=== PATIENT | female | born 1960 | race African-American/Black ===

== ENCOUNTER 2017-07-02 15:22 | Emergency (ER) | payer OTHER, MEDICARE ==
[~2017-07-02] VITALS: Ht 157.5 cm; Wt 86.2 kg
[2017-07-02] MEDS ORDERED: NKM (15:37)
--- NOTE | 2017-07-02 15:50 | Emergency Room Report ---
History of Present Illness General Chief Complaint: Dizziness Source: Patient Present Illness HPI [id number] walk-in with 2-3 days of "dizziness" - by dizziness, patient endorses feeling lightheaded. Only when she moves from lying to standing position. However, alleges room "Was spinning" 3 days ago. Symptoms assoc with 3 days of constant generalized headache as well. "mild headache," 4/10. Sharp in quality. No associated nausea/vomiting, chest pain, SOB, palpitations, abd pain, urinary complaints History of hemorrhoids but denies blood in stool, dark blood. Doesnt take any other medication. Used to take ibuprofen "every other day" but hasnt taken in "months." Family history of DM. Blood glucose 110 here. Allergies: Coded Allergies: No Known Allergies (Unverified , 07/02/17) Patient History Past Medical History: none Past Surgical History: none Pertinent Family History: DM Social History: Denies: smoking, alcohol use, drug use Now: No Immunizations: UTD Reviewed Nursing Documentation: PMH: Agreed, PSxH: Agreed Nursing Documentation-PMH Past Medical History: No Stated History Review of Systems All Other Systems: negative except mentioned in HPI Physical Exam Vital Signs Date Time Temp Pulse Resp B/P (MAP) Pulse Ox O2 Delivery O2 Flow Rate FiO2 07/02/17 15:25 98.1 109 20 148/72 100 Room Air Sp02 EP Interpretation: reviewed, normal General Appearance: normal inspection, well appearing, no apparent distress, alert, GCS 15, non-toxic Head: normocephalic, atraumatic Eyes: bilateral eye PERRL, bilateral eye EOMI ENT: normal ENT inspection, hearing grossly normal, normal voice Neck: normal inspection, full range of motion, supple, no bony tend Respiratory: normal inspection, lungs clear, normal breath sounds, no rhonchi, no respiratory distress, no retraction, no accessory muscle use, no wheezing, speaking full sentences Cardiovascular #1: no edema, no gallop, no JVD, tachycardia Gastrointestinal: normal inspection, normal bowel sounds, non tender, soft, no guarding, no hernia Genitourinary: no CVA tenderness Musculoskeletal: normal inspection, back normal, normal range of motion, Bethanie' s Sign negative Neurologic: normal inspection, alert, oriented x3, responsive, supervisor cap and hat production III-XII nml as tested, cerebellar normal, normal gait, speech normal Psychiatric: normal inspection, judgement/insight normal, mood/affect normal Skin: normal inspection, normal color, no rash Medical Decision Making Diagnostic Impression: Primary Impression: Light-headed feeling Additional Impressions: Tachycardia Headache Qualified Codes: G44.209 - Tension-type headache, unspecified, not intractable Dehydration EDWARD (acute kidney injury) ER Course Initial tachycardia resolved to 92 from 109 without ED intervention Further improved to 82 after IVF Ns and Tylenol for headache Mild EDWARD, possibly dehydration as cause of lightheadedness, headache as symptoms improved with IVF CT head negative for mass, mass effect, CVA, bleed ECG is NSR. Troponin 0. Unlikely ACS given duration of symptoms, well appearance, no known CAD risk factors D-dimer is WNL so unlikely PE as cause for lightheadedness Patient does not have PMD - just had insurance re-adjusted. Was given copy of labs, ECG - will f/up with PMD DC home EKG Diagnostic Results Rate: normal Rhythm: NSR ST Segments: no acute changes ASA given to the pt in ED: No Rhythm Strip Diag. Results EP Interpretation: yes Rate: 92 Rhythm: NSR, no PVC's, no ectopy Last Vital Signs Date Time Temp Pulse Resp B/P (MAP) Pulse Ox O2 Delivery O2 Flow Rate FiO2 07/02/17 15:25 98.1 109 20 148/72 100 Room Air Status: improved Disposition: HOME, SELF-CARE CAREN ARREOLA M.D. Jul 02, 2017 15:50
[2017-07-02 16:10] VITALS: BP 126/77
[2017-07-02 16:30] LABS: BASOPHILS % (AUTO) 0.9 % (0.0-2.0); EOSINOPHILS % (AUTO) 0.7 % (0.0-3.0); LYMPHOCYTES % (AUTO) 30.6 % (20.0-45.0); MEAN CORPUSCULAR HEMOGLOBIN 34.8 PG (27.0-31.0); MEAN CORPUSCULAR HGB CONC 36.1 G/DL (32.0-36.0); MEAN CORPUSCULAR VOLUME 96 FL (80-99); MEAN PLATELET VOLUME 5.4 FL (6.5-10.1); MONOCYTES % (AUTO) 5.5 % (1.0-10.0); NEUTROPHILS % (AUTO) 62.3 % (45.0-75.0); PLATELET COUNT 352 K/UL (150-450); RED BLOOD COUNT 4.83 M/UL (4.20-5.40); RED CELL DISTRIBUTION WIDTH 12.8 % (11.6-14.8)
[2017-07-02 16:46] LABS: TROPONIN I < 0.30 ng/mL (<=0.30)
[2017-07-02 16:50] LABS: ALANINE AMINOTRANSFERASE 10 U/L (3-33); ALBUMIN/GLOBULIN RATIO 1.1 (1.0-2.7); ANION GAP 14 (5-15); ASPARTATE AMINO TRANSFERASE 12 U/L (5-40); CALCIUM 9.3 mg/dL (8.6-10.2); CARBON DIOXIDE 23 mEQ/L (20-30); CHLORIDE 102 mEQ/L (98-107); GLOMERULAR FILTRATION RATE 56.9 mL/min (>60); HEMOLYSIS 2; POTASSIUM 4.2 mEQ/L (3.4-4.9); SODIUM 139 mEQ/L (135-145); TOTAL PROTEIN 7.9 g/dL (6.6-8.7)
[2017-07-02 17:00] LABS: CKMB < 1.5 ng/mL (< 3.8)
[2017-07-02 18:00] VITALS: BP 114/62
--- NOTE | 2017-07-03 12:24 | Diagnostic Imaging Report ---
Indication: Dizziness with nausea X3 days Technique: Continuous helical CT scanning of the head was performed without intravenous contrast material. Axial and coronal 5 mm sections were generated. Radiation dose was minimized using automated exposure control Dose: Total Dose Length Product - DLP [address] Dose Index - CTDIvol(s) 70.38 mGy. Comparison: None Findings: The ventricular system is normal in size and configuration. There is no shift of midline structures. No abnormal extra-axial fluid collections are noted. There is no evidence of intracerebral bleeding. No other abnormal high or low density areas are noted within the brain. Impression: Normal CT scan of the head without contrast material. The CT scanner at [facility] is accredited by the [employer] and the scans are performed using protocols designed to limit radiation exposure to as low as reasonably achievable to attain images of sufficient resolution adequate for diagnostic evaluation.
--- NOTE | 2017-07-03 12:26 | Diagnostic Imaging Report ---
Indication: SOB Technique: One view of the chest Comparison: none Findings: Lungs and pleural spaces are clear. Heart size is normal. Impression: No acute process
--- NOTE | 2017-07-10 19:21 | Cardiology Report ---
APPROVED REPORT EKG Measurement Heart [id number] Normal sinus rhythm Possible Left atrial enlargement Borderline ECG
== END 2017-07-02 18:09 | disposition home or self-care (01) ==
LOC: EMR 17:00
DX: R42 Dizziness and giddiness (principal); R00.0 Tachycardia, unspecified; G44.209 Tension-type headache, unspecified, not intractable; E86.0 Dehydration; N17.9 Acute kidney failure, unspecified; R06.02 Shortness of breath; Z83.3 Family history of diabetes mellitus
CPT/HCPCS: 36415; 70450; 71010; 80053; 82550; 82553; 82962; 84484; 85025; 85379; 93005; 96360; 96361; 99284